=== PATIENT | female | born 1945 | race Caucasian/White ===

== ENCOUNTER 2018-12-16 09:54 | Outpatient (CLI) | payer MEDICARE, MEDICAID ==
[2018-12-16] MEDS ORDERED: IOHEXOL-350 100 ML VIAL IV ONE (10:08)
[2018-12-16] MEDS ORDERED: NITROGLYCERIN 0.4 MG/TAB BOTTLE ONE (10:09)
[2018-12-16] MEDS ORDERED: IV NS 0.9% 250 ML IV ONE (10:09)
[2018-12-16] MEDS ORDERED: METOPROLOL TARTRATE INJ 5 MG/5 ML AMPUL ONE (10:09)
[2018-12-16] MEDS ORDERED: CT SWABBABLE VALVE TRANS SET 1 EA INFUS.SET MC ONE (10:09)
[2018-12-16] MEDS ORDERED: IV NS 0.9% 500 ML IV PRN (10:30)
[2018-12-16] MEDS ORDERED: METOPROLOL TARTRATE INJ 5 MG/5 ML AMPUL IVP PRN (10:30)
[2018-12-16] MEDS ORDERED: NITROGLYCERIN 0.4 MG/TAB BOTTLE SL ONE (10:30)
--- NOTE | 2018-12-16 11:31 | NUR ---
RN NOTE 1040: Patient came in the CT room for CTA. A/Ox4. Mongolian speaking, accompanied by and daughter. Placed on 2LPM of O2 vua NC. Started PIV g18 in RAC with good bloor return. Paced IV NS TKO. VSS, Administered 5mg Metoprolol for HR 66. 1100: No any additional Metoprolol given for HR 59-62. 1103: Nitro SL given. 1105: Scanning with contrast. 1107: Procedure done, tolerated well. 1110: Post CTA VSS. 105/55, 62, 95%, 20. Received 250mL NS. 1120: 112/73. No c/o dizziness, headache at this time. Encouraged to increase OFI. Removed LAC PIV, cannula intact. Appled pressured dry dressing. Accompanied to BR by daughter to change to regular clothes. 1130: Discharged patient on stable status. Accompanied by family. Addendum: 12/16/18 at 1147 by HAYDEE JIANG RN Per [facility], EKG done, reviewed and said he will print for the chart.
[2018-12-16 11:46] VITALS: BP 124/75
== END 2018-12-16 23:59 | disposition home or self-care (01) ==
LOC: CT 09:54
PROVIDERS: ATTEND Internal Medicine Interventional Cardiology
DX: R07.9 Chest pain, unspecified (principal); I49.9 Cardiac arrhythmia, unspecified; M47.814 Spondylosis without myelopathy or radiculopathy, thoracic region
CPT/HCPCS: 75574; J3490; J7050; Q9967